=== PATIENT | female | born 1995 | race Caucasian/White ===

== ENCOUNTER → 2018-11-29 10:58 | Outpatient (CLI) | payer OTHER, SELFPAY ==
[2018-11-29 11:41] LABS: Basophils # 0.1 K/mm3 (0-0.2); Basophils % 0.5 % (0.1-2.0); Eosinophils # 0.2 K/mm3 (0.0-0.4); Eosinophils % 1.8 % (0.1-12.0); Hematocrit 42.1 % (37.0-47.0); Hemoglobin 14.4 g/dL (12.2-16.2); Lymphocytes # 2.5 K/mm3 (0.7-4.5); Lymphocytes % 27.5 % (10-50); Mean Corpuscular HGB Conc 34.2 g/dL (31.8-35.4); Mean Corpuscular Hemoglobin 31.2 pg (27.0-31.2); Mean Corpuscular Volume 91.2 fl (81-99); Mean Platelet Volume 6.6 fl (7.4-10.4); Monocytes # 0.3 K/mm3 (0.1-1.0); Monocytes % 3.3 % (1.7-9.3); Neutrophils # 6.1 K/mm3 (1.8-7.8); Neutrophils % 66.9 % (37.0-80.0); Platelet Count 354 K/mm3 (142-424); Red Blood Count 4.62 M/mm3 (4.20-5.40); Red Cell Distribution Width 12.7 % (11.5-17.5); White Blood Count 9.1 K/mm3 (4.8-10.8)
[2018-12-02 10:09] LABS: HIV Screen 4th Generation wRfx Non Reactive (Non Reactive); Hepatitis B Surface Antigen Negative (Negative); Hepatitis C Antibody 0.2 s/co ratio (0.0-0.9); Rapid Plasma Reagin Ab Titer Non Reactive (NonRea<1:1); Rubella Antibodies, IgG 2.46 index (Immune >0.99)
== END ==
PROVIDERS: Visit Provider Nurse Practitioner Obstetrics & Gynecology
DX: Z34.90 Encounter for supervision of normal pregnancy, unspecified, unspecified trimester (principal)
CPT/HCPCS: 36415; 85025; 86592; 86703; 86762; 86850; 87340; 87380; G0432

== ENCOUNTER → 2018-12-08 09:46 | Outpatient (CLI) | payer OTHER, SELFPAY ==
--- NOTE | 2018-12-08 09:48 | US_ITS ---
US OB transvaginal HISTORY: ITS.REASON: US OB Dates ORDERING PHYSICIAN: Eagle Saenz MD PATIENT AGE: 23 years COMPARISON: None FINDINGS: An intrauterine gestational sac is present with a pole with a crown-rump length of 2.29cm correlating to gestational age of 9w0d. heart tones are present with an FHR of 170 bpm's. Yolk sac is noted. Adnexa: Unremarkable. IMPRESSION: Live intrauterine gestation at 9 weeks 0 days as described above. Estimated due date by Ultrasound is 07/13/2019
== END ==
PROVIDERS: PCP Nurse Practitioner Obstetrics & Gynecology; Visit Provider Nurse Practitioner Obstetrics & Gynecology
DX: O26.841 Uterine size-date discrepancy, first trimester (principal)
CPT/HCPCS: 76817

== ENCOUNTER 2019-02-20 13:48 | Outpatient (CLI) | payer OTHER, SELFPAY ==
[2019-02-20 13:58] VITALS: BP 116/63; PULSE 93; RESP 18; TEMP 37.6; O2SAT 96; BMI 42.1; BMI 42.3
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
== END 2019-02-20 16:00 | disposition home or self-care (01) ==
LOC: OBOUT 13:48 → OB 13:49
PROVIDERS: Visit Provider Nurse Practitioner Obstetrics & Gynecology
DX: O9A.219 Injury, poisoning and certain other consequences of external causes complicating pregnancy, unspecified trimester (principal); Z3A.19 19 weeks gestation of pregnancy; M54.5 Low back pain; R10.9 Unspecified abdominal pain
CPT/HCPCS: 76811

== ENCOUNTER → 2019-04-11 07:41 | Outpatient (CLI) | payer OTHER, SELFPAY ==
[2019-04-11 09:07] LABS: Glucose,Fasting 88 mg/dL (60-105)
[2019-04-11 09:49] LABS: Glucose 1 Hour 103 mg/dL (74-106)
== END ==
PROVIDERS: Visit Provider Nurse Practitioner Obstetrics & Gynecology
DX: Z34.90 Encounter for supervision of normal pregnancy, unspecified, unspecified trimester (principal)
CPT/HCPCS: 36415; 82951

== ENCOUNTER 2019-04-30 09:05 | Outpatient (CLI) | payer OTHER, SELFPAY ==
[2019-04-30 09:28] VITALS: BP 126/82; PULSE 88; RESP 18; TEMP 36.6; O2SAT 95; BMI 40.4
[2019-04-30 09:52] LABS: Microscopic, Urine URINE MICROSCOPIC (MICROSCOPIC)
[2019-04-30 09:55] LABS: Appearance,Urine CLOUDY (Clear); Bilirubin,Urine Negative (Negative); Blood, Urine Negative (Negative); Color,Urine YELLOW (Yellow); Glucose,Urine (UA) Negative (Negative); Ketones,Urine Negative (Negative); Leukocyte Esterase,Urine 2+ (Negative); Nitrate,Urine Negative (Negative); PH,Urine 6.5 (5.0-8.5); Protein,Urine Negative (Negative); Urobilinogen,Urine 0.2 EU/dl (0.2)
[2019-04-30 10:05] LABS: Amphetamine/Metha Screen,Urine Negative ng/mL (<1000); Barbiturates Screen,Urine Negative ng/mL (<200); Benzodiazepines Screen,Urine Negative ng/mL (<200); Cannabinoid Screen,Urine Negative ng/mL (<50); Cocaine Screen,Urine Negative ng/mL (<300); Methadone Screen,Urine Negative ng/mL (<300); Opiate Screen,Urine Negative ng/mL (<300); Phencyclidine Screen,Urine Negative ng/mL (<25)
[2019-04-30 10:08] LABS: Bacteria,Urine 3+ /lpf; Squamous Epithelial Cell,Urine 20-50 #/hpf (0-5); WBC,Urine 20-50 #/hpf (0-3)
[2019-04-30 10:34] LABS: Fetal Fibronectin (Rapid) Negative (Negative)
== END 2019-04-30 11:15 | disposition home or self-care (01) ==
LOC: OBOUT 09:06 → OB 09:07
PROVIDERS: Visit Provider Nurse Practitioner Obstetrics & Gynecology
DX: Z3A.29 29 weeks gestation of pregnancy; O47.03 False labor before 37 completed weeks of gestation, third trimester; N39.0 Urinary tract infection, site not specified
CPT/HCPCS: 59025; 80305; 81001; 82731; 87086

== ENCOUNTER 2019-06-05 12:45 | Outpatient (CLI) | payer OTHER, SELFPAY ==
[2019-06-05 13:06] VITALS: BP 111/68; PULSE 86; RESP 18; TEMP 36.7; O2SAT 98; BMI 36.8
[2019-06-05 13:22] LABS: Microscopic, Urine URINE MICROSCOPIC (MICROSCOPIC)
[2019-06-05 13:24] LABS: Appearance,Urine CLEAR (Clear); Bilirubin,Urine Negative (Negative); Blood, Urine Negative (Negative); Color,Urine YELLOW (Yellow); Glucose,Urine (UA) Negative (Negative); Ketones,Urine Negative (Negative); Leukocyte Esterase,Urine TRACE (Negative); Nitrate,Urine Negative (Negative); Protein,Urine Negative (Negative); Urobilinogen,Urine 0.2 EU/dl (0.2)
[2019-06-05 13:32] LABS: Bacteria,Urine Trace /lpf; Squamous Epithelial Cell,Urine Occasional #/hpf (0-5); WBC,Urine Occasional #/hpf (0-3)
[2019-06-05 13:33] LABS: Amphetamine/Metha Screen,Urine Negative ng/mL (<1000); Barbiturates Screen,Urine Negative ng/mL (<200); Benzodiazepines Screen,Urine Negative ng/mL (<200); Cannabinoid Screen,Urine Negative ng/mL (<50); Cocaine Screen,Urine Negative ng/mL (<300); Methadone Screen,Urine Negative ng/mL (<300); Opiate Screen,Urine Negative ng/mL (<300); Phencyclidine Screen,Urine Negative ng/mL (<25)
== END 2019-06-05 14:20 | disposition home or self-care (01) ==
LOC: OBOUT 12:46 → OB 12:47
PROVIDERS: Visit Provider Nurse Practitioner Obstetrics & Gynecology
DX: O36.8130 Decreased fetal movements, third trimester, not applicable or unspecified (principal); Z3A.34 34 weeks gestation of pregnancy
CPT/HCPCS: 59025; 80305; 81001

== ENCOUNTER → 2019-06-15 16:02 | Outpatient (CLI) | payer OTHER, SELFPAY | PROVIDERS: Visit Provider Nurse Practitioner Obstetrics & Gynecology | DX: Z34.90 Encounter for supervision of normal pregnancy, unspecified, unspecified trimester (principal) | CPT/HCPCS: 86403 ==

== ENCOUNTER → 2019-06-19 13:30 | Outpatient (CLI) | payer OTHER, SELFPAY ==
--- NOTE | 2019-06-19 13:31 | US_ITS ---
PROCEDURE: US OB BPP W/FET-MAT S/D CLINICAL INDICATION: us ob bpp growth, s/d ratio- LGA Large for gestational age COMPARISON: OBFEMAT US OB /maternal detail from 02/20/2019 FINDINGS: Single viable intrauterine gestation. Cephalic position. Placenta: Anteriorplacenta grade 3. There is average amount fluid. The cervix appears satisfactory. Closed and measuring 4 cm in length. Measurements: Average ultrasound age 37 weeks 4 days. Gestational Age 36 weeks 4 days Estimated due date by ultrasound age 1007/06/2019. Estimated weight 3,163.7 ggrams. This is 73rd percentile BPD = 38 weeks 4 days OFD = HC = 38 weeks 4 days AC = 37 weeks 6 days FL = 35 weeks 1 day Growth Percentile= 73 percentile% Heart Rate = 130 bpm Cerebellum = Humerus = HC/AC is 0.99 CI is 0.8 FL/BPD is 0.72 FL/AC is 0.2 Amniotic fluid volume is upper normal at 18.5 cm. Biophysical profile is 8 of 8 Umbilical artery evaluation demonstrates an SD ratio of 2.4 and a resistive index of 0.58 both within normal limits. IMPRESSION: There is a single live intrauterine gestation with an average ultrasound age of 37 weeks and 4 days. Estimated weight is 3163 g which is 73rd percentile. The placenta is anterior and grade 3. Umbilical artery evaluation is unremarkable. Amniotic fluid index is 18.5 cm. Biophysical profile is 8 of 8 Dictated by: Gary Cadet MD 06/19/2019 18:30 Electronically signed by Gary Cadet MD in [place] 06/19/2019 18:30
== END ==
PROVIDERS: Visit Provider Nurse Practitioner Obstetrics & Gynecology
DX: O36.60X0 Maternal care for excessive fetal growth, unspecified trimester, not applicable or unspecified (principal)
CPT/HCPCS: 76819

== ENCOUNTER 2019-07-02 12:40 | Outpatient (CLI) | payer OTHER, SELFPAY ==
[2019-07-02 12:46] VITALS: BMI 41.1
[2019-07-02 13:08] LABS: Microscopic, Urine URINE MICROSCOPIC (MICROSCOPIC)
[2019-07-02 13:10] VITALS: BP 112/67; PULSE 98; RESP 18; TEMP 36.9; O2SAT 99; BMI 41.1
[2019-07-02 13:13] LABS: Appearance,Urine CLEAR (Clear); Bilirubin,Urine Negative (Negative); Blood, Urine Negative (Negative); Color,Urine YELLOW (Yellow); Glucose,Urine (UA) Negative (Negative); Ketones,Urine Negative (Negative); Leukocyte Esterase,Urine 1+ (Negative); Nitrate,Urine Negative (Negative); PH,Urine 6.5 (5.0-8.5); Protein,Urine Negative (Negative); Specific Gravity, Urine 1.015 (1.005-1.030); Urobilinogen,Urine 0.2 EU/dl (0.2)
[2019-07-02 13:22] LABS: Fetal Membrane Rupture (Rapid) Negative (Negative)
[2019-07-02 13:26] LABS: Amphetamine/Metha Screen,Urine Negative ng/mL (<1000); Barbiturates Screen,Urine Negative ng/mL (<200); Benzodiazepines Screen,Urine Negative ng/mL (<200); Cannabinoid Screen,Urine Negative ng/mL (<50); Cocaine Screen,Urine Negative ng/mL (<300); Methadone Screen,Urine Negative ng/mL (<300); Opiate Screen,Urine Negative ng/mL (<300); Phencyclidine Screen,Urine Negative ng/mL (<25)
[2019-07-02 13:36] LABS: Bacteria,Urine 2+ /lpf
== END 2019-07-02 14:00 | disposition home health service (06) ==
LOC: OBOUT 12:41 → OB 12:41
PROVIDERS: Visit Provider Nurse Practitioner Obstetrics & Gynecology
DX: O60.03 Preterm labor without delivery, third trimester (principal); Z3A.38 38 weeks gestation of pregnancy
CPT/HCPCS: 59025; 80305; 81001; 84112; 87086

== ENCOUNTER 2019-07-08 16:06 | Inpatient (IN) ==
[2019-07-08 17:17] LABS: Microscopic, Urine URINE MICROSCOPIC (MICROSCOPIC)
[2019-07-08 17:19] LABS: Basophils % 0.2 % (0.1-2.0); Eosinophils # 0.2 K/mm3 (0.0-0.4); Eosinophils % 1.7 % (0.1-12.0); Hematocrit 40.1 % (37.0-47.0); Hemoglobin 12.6 g/dL (12.2-16.2); Lymphocytes # 2.9 K/mm3 (0.7-4.5); Mean Corpuscular HGB Conc 31.4 g/dL (31.8-35.4); Mean Corpuscular Volume 95.9 fl (81-99); Mean Platelet Volume 7.6 fl (7.4-10.4); Monocytes # 0.5 K/mm3 (0.1-1.0); Monocytes % 4.6 % (1.7-9.3); Neutrophils # 7.4 K/mm3 (1.8-7.8); Neutrophils % 67.6 % (37.0-80.0); Platelet Count 284 K/mm3 (142-424); Red Blood Count 4.18 M/mm3 (4.20-5.40); Red Cell Distribution Width 14.5 % (11.5-17.5)
[2019-07-08 17:22] LABS: Appearance,Urine SL CLOUDY (Clear); Bilirubin,Urine Negative (Negative); Blood, Urine TRACE-I (Negative); Color,Urine YELLOW (Yellow); Glucose,Urine (UA) Negative (Negative); Ketones,Urine Negative (Negative); Leukocyte Esterase,Urine TRACE (Negative); Protein,Urine Negative (Negative); Urobilinogen,Urine 0.2 EU/dl (0.2)
[2019-07-08 17:28] LABS: Amphetamine/Metha Screen,Urine Negative ng/mL (<1000); Bacteria,Urine 1+ /lpf; Barbiturates Screen,Urine Negative ng/mL (<200); Benzodiazepines Screen,Urine Negative ng/mL (<200); Cannabinoid Screen,Urine Negative ng/mL (<50); Cocaine Screen,Urine Negative ng/mL (<300); Methadone Screen,Urine Negative ng/mL (<300); Opiate Screen,Urine Negative ng/mL (<300); Phencyclidine Screen,Urine Negative ng/mL (<25); RBC,Urine Occasional #/hpf (0-3); WBC,Urine Occasional #/hpf (0-3)
--- NOTE | 2019-07-08 19:00 | Progress Note ---
[facility] Anesthesia Checklist - Patient Identification Patient Identification: Arm Band - Structural Data Admitted From: Home Planned Operative Procedure/s: labor epidural Consent for Planned Operative Procedure(s) Verified: Yes Verified Documents: Surgical Consent, History and Physical - NPO Status Verified Time NPO: 00:00 - Additional verifications Anesthesia Reactions: No - Airway Assessment C-Spine Mobility Assessed: Yes TMJ Mobility Assessed: Yes Dentition: Good Dentition - Neurological Assessment Level of Consciousness: Awake, Alert - Anesthesia Plan Anesthesia Risk discussed: Yes Anesthesia Plan: Verified ASA Class: II Anesthesia Type: Epidural [facility] History I have reviewed the patient's past medical history: Yes Medical History: Denies:: Cancer, Diabetes Mellitus Type 2, MRSA *Have you ever received a pneumonia vaccine?: No *Have you received a flu vaccine this season?: Yes Anesthesia experience/problems:: nac Laterality Cases: Other Surgeries: Yes: No Previous Surgery. No: Amputation: No Fractures: No - *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 Smoking Status: Never smoker Alcohol Intake: never Substance Use Type: denies use *Occupational Status:: employed Housing: house Household Members: family *Travel in the last 8 weeks: None Family Hx:: No significant family history Para: 1
--- NOTE | 2019-07-09 06:01 | Procedure Note ---
- Delivery Note Delivery Date:: 07/09/19 Delivery Time:: 05:48 Anesthesia Type: Epidural Was labor medically induced?: No Infant delivered prior to 39 weeks?: No Justification for early elective delivery:: Active Labor at 1 minute: 9 at 5 minutes: 9 Delivery Procedure:: Spontaneous vaginal delivery of liveborn male over intact perineum. Delivery uncomplicated No nuchal cord or shoulder dystocia with delivery Infant placed in ZAY with mother immediately after umbilical cord clamped/cut, with standard nursing assessment performed Apgars: 9 & 9 Placenta spontaneously expressed and examined; noted to be complete/intact. Vulva, vagina, and cervix inspected; no lacerations present EBL: 300 cc All sponge/needle/instrument counts correct at conclusion of procedure Disposition: Mom/baby stable to recovery in LDRP Placental Delivery Description: Spontaneous
[2019-07-10 06:15] LABS: Hematocrit 39.9 % (37.0-47.0)
--- NOTE | 2019-07-10 06:23 | Progress Note ---
Internal Medicine - PN: Subj *Date: 07/10/19 *Time: 06:22 (This is day #1. The patient is afebrile. Vital signs stable. Abdomen soft. Lochia normal. Uterine fundus involuting well. Bottlefeeding. The baby is doing well. Impression: Stable.) Exam Vital signs and Labs for Last 24 Hours: Temp Pulse Resp BP Pulse Ox 98.1 F 81 16 107/66 L 98 07/10/19 04:00 07/10/19 04:00 07/10/19 04:00 07/10/19 04:00 07/10/19 04:00 I & O for Last 24 hours: Intake & Output 07/07/19 07/08/19 07/09/19 07/10/19 11:59 11:59 11:59 11:59 Weight 160 lb
[2019-07-11 04:22] VITALS: BP 109/67
--- NOTE | 2019-07-11 09:59 | Discharge Summary ---
General - General Admission date:: 07/08/19 Discharge date: 07/11/19 HPI HPI: admitted with SROM at 39 wks Normal without complication course uneventful Tolerating regular diet, ambulating and voiding without difficulty Discharged home on PPD #2 in stable condition Declines Rx for pain meds at discharge Hospital Course Hospital Course: per HPI Rhogam Administration: Not Indicated Objective Vital signs: Temp Pulse Resp BP Pulse Ox 97.7 F 71 16 109/67 L 98 07/11/19 04:00 07/11/19 04:00 07/11/19 04:00 07/11/19 04:00 07/11/19 04:00 Narrative: CONSTITUTIONAL: no acute distress HEENT: mucous membranes moist PULMONARY: breathing unlabored without audible wheezes CV: no tachycardia or visible JVD; normal LE peripheral pulses ABD: soft, NT/ND, no guarding : fundus firm at/below umbilicus SKIN: no visible rash or lesions EXT: 1+ edema LEs NEURO: alert/oriented, no altered mental status PSYCH: appropriate mood and demeanor without visible anxiety/depression DS: Diagnosis - Discharge Diagnosis (1) Spontaneous rupture of membranes Status: Acute (2) Vaginal delivery Status: Acute Discharge Plan - Patient Discharge Instructions ACTIVITY: Limited activity DIET: regular diet Additional Instructions: No heavy lifting, no strenuous activity, nothing in the vagina for 6 weeks. Patient Instructions: Depression, Hemorrhage, [facility] Post Discharge Instructions - Follow up Plan Follow up with: Eagle Saenz MD [Staff Physician] - Disposition: Home, Self-Mcc Medications: Home Medications Medication Instructions Recorded Confirmed Type vit 122-ferrous fumarate 1 tab PO DAILY tab 11/29/18 07/08/19 History 27 mg iron-folic acid 800 mcg tablet Ferrous Sulfate 325 mg PO DAILY 07/08/19 07/08/19 History Prescriptions/Medication Reconciliation: New Ibuprofen [Motrin 400mg tablet] 800 mg PO Q6HP PRN tablet PRN Reason: Mild To Moderate Pain Continued vit 122-ferrous fumarate 27 mg iron-folic acid 800 mcg tablet 1 tab PO DAILY tab Ferrous Sulfate 325 mg PO DAILY - Problem Reconciliation Problems Reviewed?: Yes
== END 2019-07-11 10:30 | disposition home or self-care (01) | DRG 807 ==
LOC: OBOUT 16:06 → OB 16:08
PROVIDERS: ADMIT Obstetrics & Gynecology; ATTEND Obstetrics & Gynecology

== ENCOUNTER → 2019-09-07 10:07 | Outpatient (CLI) | payer OTHER, SELFPAY ==
[2019-09-07 10:29] LABS: Basophils % 0.6 % (0.1-2.0); Eosinophils # 0.2 K/mm3 (0.0-0.4); Eosinophils % 2.3 % (0.1-12.0); Hematocrit 44.3 % (37.0-47.0); Hemoglobin 14.4 g/dL (12.2-16.2); Lymphocytes # 2.4 K/mm3 (0.7-4.5); Lymphocytes % 37.5 % (10-50); Mean Corpuscular HGB Conc 32.4 g/dL (31.8-35.4); Mean Corpuscular Hemoglobin 30.4 pg (27.0-31.2); Mean Corpuscular Volume 93.6 fl (81-99); Mean Platelet Volume 7.1 fl (7.4-10.4); Monocytes # 0.3 K/mm3 (0.1-1.0); Monocytes % 3.9 % (1.7-9.3); Neutrophils # 3.6 K/mm3 (1.8-7.8); Neutrophils % 55.6 % (37.0-80.0); Platelet Count 328 K/mm3 (142-424); Red Blood Count 4.73 M/mm3 (4.20-5.40); Red Cell Distribution Width 13.3 % (11.5-17.5); White Blood Count 6.4 K/mm3 (4.8-10.8)
[2019-09-07 11:27] LABS: HCG Qualitative, Serum Negative (Negative)
[2019-09-07 12:00] LABS: Blood Urea Nitrogen 12 mg/dL (7-18); Chloride 105 mmol/L (98-107); Creatinine,Serum 0.79 mg/dL (0.55-1.02); Potassium 4.3 mmoL/L (3.5-5.1); Sodium 143 mmol/L (136-145)
[2019-09-07 12:01] LABS: Alanine Aminotransferase 66 U/L (12-78); Albumin Level 3.9 gm/dL (3.4-5.0); Albumin/Globulin Ratio 1.2 (1.1-1.8); Estimated Glomerular Filt Rate 90 ml/min (>60); GFR (African American) 109 ML/MIN (>60); Globulin 3.2 gm/dl (1.3-3.2); Glucose 82 mg/dL (74-106); Total Protein,Serum 7.1 gm/dL (6.4-8.2)
[2019-09-07 12:11] LABS: Alkaline Phosphatase 101 U/L (46-116); Anion Gap 16.3 mEq/L (5-15); Aspartate Amino Transferase 23 U/L (15-37); Bilirubin,Total 0.5 mg/dL (0.2-1.0); Carbon Dioxide 26 mmol/L (21.0-32.0)
== END ==
PROVIDERS: Visit Provider Nurse Practitioner Obstetrics & Gynecology
DX: Z01.818 Encounter for other preprocedural examination (principal)
CPT/HCPCS: 36415; 80053; 84703; 85025

== ENCOUNTER → 2021-10-16 12:15 | Outpatient (CLI) | payer BC, SELFPAY | PROVIDERS: Visit Provider Nurse Practitioner | DX: Z20.822 Contact with and (suspected) exposure to COVID-19 (principal) | CPT/HCPCS: C9803; U0003; U0005 ==

== ENCOUNTER → 2022-07-14 16:04 | Outpatient (CLI) | payer SELFPAY ==
[2022-07-14 16:52] LABS: Chloride 101 mmol/L (98-107); Potassium 3.8 mmoL/L (3.5-5.1); Sodium 138 mmol/L (136-145)
[2022-07-14 16:54] LABS: Blood Urea Nitrogen 15 mg/dl (7-17); Estimated Glomerular Filt Rate 87 ml/min (>60); GFR (African American) 105 ML/MIN (>60)
[2022-07-14 16:55] LABS: Alanine Aminotransferase 29 U/L (12-78); Albumin Level 4.4 g/dl (3.5-5.0); Albumin/Globulin Ratio 1.7 (1.1-1.8); Alkaline Phosphatase 109 U/L (38-126); Anion Gap 12.8 mEq/L (5-15); Aspartate Amino Transferase 31 U/L (14-36); Bilirubin,Total 0.3 mg/dl (0.2-1.3); Carbon Dioxide 28 mmol/L (22.0-30.0); Globulin 2.6 g/dL (1.3-3.2); Glucose 84 mg/dl (74-100)
== END ==
PROVIDERS: PCP Nurse Practitioner Family; Visit Provider Nurse Practitioner Family
DX: Z00.00 Encounter for general adult medical examination without abnormal findings (principal); L65.9 Nonscarring hair loss, unspecified
CPT/HCPCS: 36415; 80053; 84443

== ENCOUNTER 2022-08-13 11:37 | Emergency (ER) | payer OTHER, SELFPAY ==
[2022-08-13 11:38] VITALS: BP 143/92; PULSE 83; RESP 16; TEMP 36.8; O2SAT 97; BMI 36.0
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
[2022-08-13 12:00] VITALS: BP 143/92; PULSE 83; RESP 16; TEMP 36.8; O2SAT 97
== END 2022-08-13 12:00 | disposition home or self-care (01) ==
PROVIDERS: Emergency Provider Emergency Medicine; PCP Nurse Practitioner Family
DX: S61.231A Puncture wound without foreign body of left index finger without damage to nail, initial encounter (principal); W46.0XXA Contact with hypodermic needle, initial encounter; Y92.239 Unspecified place in hospital as the place of occurrence of the external cause; Y99.0 Civilian activity done for income or pay
CPT/HCPCS: 99282

== ENCOUNTER 2022-09-05 10:39 | Emergency (ER) | payer OTHER, SELFPAY ==
[2022-09-05 12:14] VITALS: BP 157/89; PULSE 89; RESP 19; TEMP 36.8; O2SAT 99; BMI 40.5
--- NOTE | 2022-09-05 12:22 | EXP.UTC ---
Discharge Plan Disposition Patient Disposition: Home, Self-Care Condition: Good Prescriptions Prescriptions: New oseltamivir [Tamiflu] 75 mg capsule 75 mg PO BID 5 Days Qty: 10 0RF No Action multivitamin Capsule 1 cap PO DAILY Referrals Follow up/Referrals: Yin Veliz APRN [Primary Care Provider] - See instructions Activity Restrictions/Add. Instructions Additional Instructions/Restrictions: covid/FLU swab was sent to lab, call later today for results. self isolate until test results are known to be negative No sign of a bacterial infection. Likely viral. Viruses can take 7-14 days to run their course. Nasal saline and bulb syringe or nose Mariaelena to remove nasal drainage to help with nasal congestion. Hard to eat, drink, sleep with nasal congestion so important to keep this cleaned out. Monitor temp. Tylenol or Motrin as needed for pain or fever Encourage fluids, water, Gatorade, Powerade, Pedialyte if /toddler/child Warm salt water gargles Warm fluids Sore throat lozenges Sleep elevated Humidifier/vaporizer Follow-up immediately for new or worsening symptoms or no noticeable improvement over the next 48-72 hours. Clinical Impressions Clinical Impression: Exposure to the flu, Upper respiratory infection, viral Instructions Patient Instructions: DI for Viral Upper Respiratory Infection -- Adult Discharge ED Provider: Afua ([facility] [facility] [place] General Stated complaint: Headache, fever, chills, congestion, sore throat Time Seen by Provider: 09/05/22 12:22 Description of Symptoms (Recalled from Triage Doc. by RN): PT STATES SHE HAS BEEN EXPOSED TO THE FLU AND STARTED HAVING SORE THROAT, CHILLS, BODY ACHES, AND COUGH YESTERDAY HEENT Symptoms (Recalled from RN notes): Yes Resp Symptoms (Recalled from RN notes): No Skin Symptoms (Recalled from RN notes): No MS Symptoms (Recalled from RN notes): No Functional Status (Recalled from RN notes): WNL History of Present Illness Provider Complaint: 27 YR OLD FEMALE PRESENTS FOR BEING EXPOSED TO THE FLU AND STARTED HAVING SORE THROAT, CHILLS, BODY ACHES, AND COUGH YESTERDAY Related Data Home Medications Medication Instructions Recorded Confirmed multivitamin 1 cap PO DAILY Supplement 08/29/19 11/29/19 Previous Rx's Medication Instructions Recorded oseltamivir 75 mg capsule (Tamiflu) 75 mg PO BID 5 days #10 caps 09/05/22 Allergies Allergy/AdvReac Type Severity Reaction Status Date / Time No Known Allergies Allergy Verified 04/02/21 11:58 Worker's Comp Is this a Worker's Comp case?: No [facility] Disclaimer: The information contained in this section may have been updated after the patient was seen, as this information can be updated by other users. 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) Smoking Status: Never smoker alcohol intake: never substance use type: denies use current occupational status: employed Travel in the last 8 weeks: None household members: family housing: house current occupation: [employer] ROS Obtained: Yes All systems reviewed & no additional complaints except as documented Constitutional Constitutional: Reports system reviewed and no additional complaints, except as documented, Reports as per HPI, Reports body ache, Reports chills and Reports fever(s) Eyes Eyes: Reports system reviewed and no additional complaints, except as documented and Reports as per HPI ENT Ears, Nose, Mouth, and Throat: Reports system reviewed and no additional complaints, except as documented, Reports nasal congestion, Reports nasal discharge and Reports sore throat Cardiovascular Cardiovascular: Reports system reviewed and no additional complaints, except as documented and Reports as per HPI Respiratory Respiratory: Reports system reviewed and no additional complaints, except as documented and Reports cough Gastrointestinal Gastrointestingal: Reports system reviewed and no additio
[2022-09-05 12:27] LABS: UTC Strep Screen (Rapid) Negative (Negative)
[2022-09-05 12:29] LABS: Coronavirus 19, PCR Not Detected (NotDetected); Influenza B, PCR Not Detected (NotDetected)
[2022-09-05 12:30] VITALS: BP 157/89; PULSE 89; RESP 19; TEMP 36.8; O2SAT 99
[2022-09-05 13:37] LABS: Influenza A, PCR Detected (NotDetected)
== END 2022-09-05 12:32 | disposition home or self-care (01) ==
PROVIDERS: Emergency Provider Nurse Practitioner Family; PCP Nurse Practitioner Family
DX: J10.1 Influenza due to other identified influenza virus with other respiratory manifestations (principal)
CPT/HCPCS: 87880; 99212; C9803; G0463; U0003; U0005

== ENCOUNTER 2023-08-29 17:14 | Emergency (ER) | payer OTHER, SELFPAY ==
[2023-08-29 20:04] LABS: UTC Strep Screen (Rapid) Positive (Negative)
[2023-08-29 20:12] VITALS: BP 129/92; PULSE 78; RESP 17; TEMP 36.8; O2SAT 100; BMI 37.4
--- NOTE | 2023-08-29 20:16 | EXP.UTC ---
Discharge Plan Disposition Patient Disposition: Home, Self-Care Condition: Good Prescriptions Prescriptions: No Action trazodone 50 mg tablet 50 mg PO DAILY Patient Comments: TAKE 2 TABLETS BY MOUTH AT BEDTIME escitalopram oxalate 20 mg tablet 20 mg PO DAILY Patient Comments: TAKE 1 TABLET BY MOUTH EVERY DAY FOR 90 DAYS bupropion HCl 300 mg tablet extended release 24 hr 300 mg PO DAILY Patient Comments: TAKE 1 TABLET BY MOUTH EVERY 24 HOURS Referrals Follow up/Referrals: Yin Alexis APRN [Primary Care Provider] - See instructions Activity Restrictions/Add. Instructions Additional Instructions/Restrictions: *Monitor Temp, Over the counter Motrin or Tylenol as directed/as needed Tylenol every 4 hours and Motrin every 6 hours (as long as your family doctor has told you that you can take it) for fever or pain. and straight to ER if unable to lower temp less than 101.0 after medication given *Warm salt water gargles may help to soothe the throat *Throat Lozenges? *Warm fluids like tea with honey may help to soothe the throat? *Sleep elevated *Humidifier/Vaporizer *If you did not take Penicillin shot or was unable to, start taking antibiotic immediately and make sure that you take it for the FULL length of time although you should start to feel better in 24-48 hours *change toothbrush and toothpaste 24-48 hours after starting to take antibiotics so you do not reinfect yourself Monitor Temp. Tylenol and/or Ibuprofen as needed. ER if fever is no less than 101 despite alternating Tylenol and Ibuprofen * Encourage fluids, water, Gatorade, powerade, pedialyte if /toddler/or child *Cold fluids, popsicles and ice cream may feel good on his throat Follow up IMMEDIATELY for new or worsening symptoms or no Noticeable improvement over the next 48-72 hours. 911 for difficulty breathing or swallowing Clinical Impressions Clinical Impression: Strep throat Instructions Patient Instructions: Strep Throat, DI for Strep Throat Discharge ED Provider: Ave Torres [facility] [place] General Stated complaint: RODRIGUES, Sore throat, bertram Time Seen by Provider: 08/29/23 20:16 History of Present Illness Provider Complaint: Patient states that she has been having headache, sore throat, and nasal congestion for about 4 days States that today she was feeling worse she feels like it does when she has strep throat Related Data Home Medications Medication Instructions Recorded Confirmed bupropion HCl 300 mg 24 hr tablet, 300 mg PO DAILY 08/29/23 08/29/23 extended release escitalopram oxalate 20 mg tablet 20 mg PO DAILY 08/29/23 08/29/23 trazodone 50 mg tablet 50 mg PO DAILY 08/29/23 08/29/23 Allergies Allergy/AdvReac Type Severity Reaction Status Date / Time clavulanic acid Allergy Rash Verified 08/29/23 20:27 [facility] Disclaimer: The information contained in this section may have been updated after the patient was seen, as this information can be updated by other users. 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 Smoking Status: Never smoker alcohol intake: never substance use type: denies use current occupational status: employed Travel in the last 8 weeks: None household members: family housing: house current occupation: [employer] Obtained: Yes All systems reviewed & no additional complaints except as documented and Yes Systems reviewed as appropriate & no additional complaints except as documented Constitutional Constitutional: Reports system reviewed and no additional complaints, except as documented, Reports as per HPI and Reports headache(s) ENT Ears, Nose, Mouth, and Throat: Reports system reviewed and no additional complaints, except as documented, Reports as per HPI, Reports headache(s), Reports nasal congestion, Reports nasal discharge and Reports sore throat Cardiovascular Cardiovascular: R
--- NOTE | 2023-08-29 20:32 | PC.NURSE ---
Spoke with pt states that she is able to take amoxicillin.
[2023-08-29 20:42] VITALS: BP 129/92; PULSE 78; RESP 17; TEMP 36.8; O2SAT 100
== END 2023-08-29 20:42 | disposition home or self-care (01) ==
PROVIDERS: Emergency Provider Nurse Practitioner; PCP Nurse Practitioner Family
DX: J02.0 Streptococcal pharyngitis (principal); R07.0 Pain in throat; R51.9 Headache, unspecified; R09.81 Nasal congestion
CPT/HCPCS: 87880; 99212; 99214; G0463

== ENCOUNTER 2023-09-17 12:25 | Emergency (ER) | payer OTHER, SELFPAY ==
[2023-09-17 15:10] VITALS: BP 127/88; PULSE 74; RESP 19; TEMP 36.8; O2SAT 99; BMI 40.7
[2023-09-17 15:32] LABS: UTC Strep Screen (Rapid) Positive (Negative)
--- NOTE | 2023-09-17 15:33 | EXP.UTC ---
Discharge Plan Disposition Patient Disposition: Home, Self-Care Condition: Good Prescriptions Prescriptions: New cephalexin 500 mg capsule 500 mg PO Q12H Qty: 20 0RF promethazine-DM 6.25-15 mg/5 mL syrup 5 ml PO Q6H PRN (Reason: cough) Qty: 118 0RF No Action trazodone 50 mg tablet 100 mg PO DAILY Patient Comments: TAKE 2 TABLETS BY MOUTH AT BEDTIME bupropion HCl 300 mg tablet extended release 24 hr 300 mg PO DAILY Patient Comments: TAKE 1 TABLET BY MOUTH EVERY 24 HOURS Referrals Follow up/Referrals: Yin Alexis APRN [Primary Care Provider] - See instructions Clinical Impressions Clinical Impression: Strep throat, Acute upper respiratory infection Instructions Patient Instructions: DI for Strep Throat, DI for Viral Upper Respiratory Infection -- Adult Discharge ED Provider: Claudia Pires [facility] HPI General Stated complaint: st, cough, congestion, Mode of Arrival: Ambulatory Source of Information: Patient Limitations: No Limitations Time Seen by Provider: 09/17/23 15:32 Description of Symptoms (Recalled from Triage Doc. by RN): PATIENT C/O SORE THROAT, DRAINAGE, EAR PAIN, COUGH AND DIZZINESS X 2 DAYS HEENT Symptoms (Recalled from RN notes): Yes Resp Symptoms (Recalled from RN notes): Yes Skin Symptoms (Recalled from RN notes): No MS Symptoms (Recalled from RN notes): No Functional Status (Recalled from RN notes): WNL History of Present Illness Provider Complaint: Pt reports that she had strep recently and completed her medication and then 3 days later started having a sore throat. She reports cough, sinus drainage, and dizziness as well for the last 2 days. Related Data Home Medications Medication Instructions Recorded Confirmed trazodone 50 mg tablet 100 mg PO DAILY 08/29/23 09/17/23 bupropion HCl 300 mg 24 hr tablet, 300 mg PO DAILY 09/17/23 09/17/23 extended release Previous Rx's Medication Instructions Recorded cephalexin 500 mg capsule 500 mg PO Q12H #20 caps 09/17/23 promethazine-DM 6.25 mg-15 mg/5 mL 5 ml PO Q6H PRN cough #118 mL 09/17/23 oral syrup Allergies Allergy/AdvReac Type Severity Reaction Status Date / Time clavulanic acid Allergy Rash Verified 08/29/23 20:27 Worker's Comp Is this a Worker's Comp case?: No [facility] Disclaimer: The information contained in this section may have been updated after the patient was seen, as this information can be updated by other users. Surgical History (Updated 09/17/23 @ 15:19 by Nicole Yuan RN) History of tubal ligation 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 Smoking Status: Never smoker alcohol intake: never substance use type: denies use current occupational status: employed Travel in the last 8 weeks: None household members: family housing: house current occupation: [employer] ROS Obtained: Yes All systems reviewed & no additional complaints except as documented Constitutional Constitutional: Reports system reviewed and no additional complaints, except as documented and Reports malaise Eyes Eyes: Reports system reviewed and no additional complaints, except as documented ENT Ears, Nose, Mouth, and Throat: Reports system reviewed and no additional complaints, except as documented, Reports otalgia, Reports nasal discharge, Reports sinus pressure, Reports sore throat and Reports vertigo Cardiovascular Cardiovascular: Reports system reviewed and no additional complaints, except as documented Respiratory Respiratory: Reports system reviewed and no additional complaints, except as documented and Reports non-productive cough Gastrointestinal Gastrointestingal: Reports system reviewed and no additional complaints, except as documented Genitourinary Female Genitourinary: Reports system reviewed and no additional complaints, except as documented Musculoskeletal Musculoskeletal: Reports system reviewed and no additional complaints, except as d
[2023-09-17 15:45] VITALS: BP 127/88; PULSE 74; RESP 19; TEMP 36.8; O2SAT 99
== END 2023-09-17 15:50 | disposition home or self-care (01) ==
PROVIDERS: Emergency Provider Nurse Practitioner Family; PCP Nurse Practitioner Family
DX: J02.0 Streptococcal pharyngitis (principal); R07.0 Pain in throat; R05.9 Cough, unspecified; R09.81 Nasal congestion; H92.09 Otalgia, unspecified ear; R42 Dizziness and giddiness; R53.81 Other malaise
CPT/HCPCS: 87880; 99212; 99214; G0463

== ENCOUNTER 2024-02-17 07:05 | Emergency (ER) | payer OTHER, SELFPAY ==
[2024-02-17 07:06] VITALS: BP 139/95; PULSE 96; RESP 17; TEMP 36.9; O2SAT 97; BMI 29.2
[2024-02-17] MEDS: BACITRACIN ZINC OINT 30GM TUBE TP (07:25)
[2024-02-17 07:30] VITALS: BP 126/87; PULSE 85; O2SAT 95
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
[2024-02-17 07:41] VITALS: BP 126/87; PULSE 85; RESP 13; TEMP 36.9; O2SAT 95
== END 2024-02-17 07:43 | disposition home or self-care (01) ==
PROVIDERS: Emergency Provider Emergency Medicine; PCP Nurse Practitioner Family
DX: T23.191A Burn of first degree of multiple sites of right wrist and hand, initial encounter (principal); X15.0XXA Contact with hot stove (kitchen), initial encounter
CPT/HCPCS: 99283